=== PATIENT | female | born 1950 | race Caucasian/White ===

== ENCOUNTER 2018-05-25 13:21 | Inpatient (IN) ==
[~2018-05-25 13:21] MED LIST: DEXTROSE 50% 25 GM/50 ML VIAL IV PRN; GLUCAGON 1 MG VIAL IM PRN
[2018-05-25 14:43] LABS: Albumin 3.4 G/DL (3.4-5.0); Bilirubin,Total 0.5 MG/DL (0.2-1.0); Calcium 8.8 MG/DL (8.5-10.1); Osmolality,Calculated 273.7 MOS/KG (273-304); Potassium 4.1 MMOL/L (3.5-5.1); Total Protein 7.8 G/DL (6.4-8.3)
[2018-05-25 14:46] LABS: Basophils # 0.1 10*3/uL (0.0-0.2); Basophils % 0.9 % (0.0-0.8); Eosinophils # 0.4 10*3/uL (0.0-0.87); Eosinophils % 4.2 % (0.00-10.9); Hematocrit 37.8 VOL% (35.7-47.0); Immature Granulocytes % 0.4 %; Immature Granulocytes Absolute 0.04 #; Lymphocytes # 2.5 10*3/uL (1.4-4.0); Lymphocytes % 25.1 % (21.3-54.2); Mean Corpuscular HGB Conc 29.9 GM/DL (32-36); Mean Corpuscular Hemoglobin 26 PG (27-34); Mean Corpuscular Volume 87.5 FL (87-102); Mean Platelet Volume 11.5 FL (9.6-12.0); Monocytes # 0.7 10*3/uL (0.11-0.8); Monocytes % 7.1 % (1.7-12.7); Neutrophils # 6.1 10*3/uL (1.4-7.4); Neutrophils % 62.3 % (38.7-73.9); Platelet Count 369 T/CUMM (130-400); Red Blood Count 4.32 MC/CUMM (3.8-5.5); Red Cell Distribution Width 15.4 % (9.3-17.3); White Blood Count 9.8 T/CUMM (4-12)
[2018-05-25 14:47] LABS: Hemoglobin 11.3 GM/DL (12.0-16.0)
[2018-05-25] MEDS: CHLORHEXIDINE 4% SOLN 118 ML BOTTLE TOP SCH ×2 (15:41→20:30)
[2018-05-25] MEDS ORDERED: ZALEPLON 5 MG CAPSULE PO PRN (15:46)
[2018-05-25] MEDS ORDERED: traMADol 50 MG TABLET PO PRN (15:46)
[2018-05-26] MEDS: CHLORHEXIDINE 4% SOLN 118 ML BOTTLE TOP SCH ×2 (04:15→09:00)
[2018-05-26] MEDS ORDERED: VANCOMYCIN 1,000 MG VIAL ONE (05:22)
[2018-05-26] MEDS ORDERED: SUFentanil 250 MCG/5 ML AMP ONE (05:57)
[2018-05-26] MEDS ORDERED: MIDAZOLAM 10 MG/2 ML VIAL ONE ×2 (05:58)
[2018-05-26] MEDS ORDERED: SODIUM CHLORIDE 0.9% 1,000 ML IV SCH (06:30)
[2018-05-26] MEDS ORDERED: PANTOPRAZOLE 40 MG TABLET PO ONE (06:30)
[2018-05-26] MEDS ORDERED: DIAZEPAM 5 MG TABLET PO ONE (06:30)
[2018-05-26] MEDS ORDERED: CEFUROXIME INJ 1,500 MG in SYRINGE 1 EACH IV ONE (06:30)
[2018-05-26 07:59] LABS: ABG Base Excess 0.5 MMOL/L (-2.5-2.5); ABG HCO3 24.9 MMOL/L (20-26); ABG PCO2 37.9 MM HG (35-48); ABG PH 7.422 (7.35-7.45); ABG TCO2 22.5 MMOL/L (23-27); Glucose Heart Surgery 125 MG/DL (74-106); Hematocrit Heart Surgery 30.9 PERCENT (37-47); PCO2 Patient Temp Arterial 37.9 MMHG; PH Patient Temp Arterial 7.422; Patient Temperature 37 CELCIUS; Potassium Heart/CVR 3.9 MMOL/L (3.5-5.1); Sodium Heart/CVR 138 MMOL/L (135-145)
[2018-05-26] MEDS ORDERED: POTASSIUM CHLORIDE RIDER 100 ML IV ONE (08:06)
[2018-05-26] MEDS ORDERED: CALCIUM CHLORIDE 1,000 MG/10 ML SYRINGE IV ONE (08:06)
[2018-05-26] MEDS ORDERED: PHENYLEPHRINE DRIP 40 MG/250 ML PREMIX IV ONE (08:06)
[2018-05-26] MEDS ORDERED: NITROPRUSSIDE 50 MG/2 ML VIAL ONE (08:06)
[2018-05-26 08:56] LABS: Hematocrit Heart Surgery 20.4 PERCENT (37-47); Hemoglobin Heart Surgery 6.5 G/DL (12.0-16.0); PCO2 Patient Temp Venous 33.1 MM HG; PH Patient Temp Venous 7.481; PO2 Patient Temp Venous 41.8 MM HG; VBG Base Excess 1.5 MEQ/L (0-4); VBG HCO3 25.6 MEQ/L (24-28); VBG Oxygen Saturation 82.5 %; VBG PCO2 36.5 MMHG (41-51); VBG PH 7.451; VBG PO2 47.9 MMHG (17-40)
[2018-05-26] MEDS ORDERED: CHLORHEXIDINE 0.12% ORAL RINSE 60 ML BOTTLE SWISH/SPIT SCH (09:00)
[2018-05-26 09:23] LABS: Hematocrit Heart Surgery 21.6 PERCENT (37-47); Hemoglobin Heart Surgery 6.9 G/DL (12.0-16.0); PCO2 Patient Temp Venous 26.7 MM HG; PH Patient Temp Venous 7.564; PO2 Patient Temp Venous 33.1 MM HG; Potassium Heart/CVR 4.3 MMOL/L (3.5-5.1); VBG Base Excess 2.4 MEQ/L (0-4); VBG HCO3 26.3 MEQ/L (24-28); VBG Oxygen Saturation 77.2 %; VBG PCO2 30.9 MMHG (41-51); VBG PH 7.518; VBG PO2 40.8 MMHG (17-40)
[2018-05-26] MEDS ORDERED: methylPREDNISolone SOD SUC 1,000 MG/8 ML VIAL ONE (10:13)
[2018-05-26] MEDS ORDERED: MANNITOL 12.5 GM/50 ML VIAL IV ONE (10:13)
[2018-05-26] MEDS ORDERED: MAGNESIUM SULFATE 10 GM/20 ML VIAL IV ONE (10:13)
[2018-05-26] MEDS ORDERED: ALBUMIN 25% 25 GM/100 ML VIAL IV ONE (10:13)
[2018-05-26] MEDS ORDERED: SODIUM BICARBONATE 50 MEQ/50 ML SYRINGE IV ONE ×2 (10:13→10:31)
[2018-05-26] MEDS ORDERED: PROTAMINE SULFATE 250 MG/25 ML VIAL IV ONE (10:13)
[2018-05-26] MEDS ORDERED: HEPARIN 10,000 UNIT/10 ML VIAL ONE (10:13)
[2018-05-26] MEDS ORDERED: DEXTROSE 5% KCL 20 MEQ 20 MEQ/1,000 ML BAG IV ONE (10:13)
[2018-05-26] MEDS ORDERED: FUROSEMIDE 20 MG/2 ML VIAL ONE (10:14)
[2018-05-26] MEDS ORDERED: PHENYLEPHRINE 1 MG/10 ML SYRINGE IV ONE (10:14)
[2018-05-26 10:15] LABS: ABG Base Excess -0.8 MMOL/L (-2.5-2.5); ABG HCO3 23.8 MMOL/L (20-26); ABG Oxygen Saturation 99.9 % (95-100); ABG PCO2 34.4 MM HG (35-48); ABG PH 7.434 (7.35-7.45); ABG TCO2 21.1 MMOL/L (23-27); Glucose Heart Surgery 213 MG/DL (74-106); Hematocrit Heart Surgery 29.4 PERCENT (37-47); Hemoglobin Heart Surgery 9.5 G/DL (12.0-16.0); Ionized Calcium Arterial 1.19 MMOL/L (1.21-1.46); PCO2 Patient Temp Arterial 34.4 MMHG; PH Patient Temp Arterial 7.434; Patient Temperature 37 CELCIUS; Potassium Heart/CVR 3.7 MMOL/L (3.5-5.1); Sodium Heart/CVR 136 MMOL/L (135-145)
[2018-05-26] MEDS ORDERED: ALBUMIN 5% 12.5 GM/250 ML VIAL IV ONE (10:31)
[2018-05-26] MEDS ORDERED: SEVOFLURANE 1 UNIT/15 MINUTE INH ONE (10:53)
[2018-05-26] MEDS ORDERED: ePHEDrine 50 MG/ML AMP ONE (10:53)
[2018-05-26] MEDS ORDERED: CALCIUM CHLORIDE 1,000 MG/10 ML VIAL IV ONE (10:53)
[2018-05-26] MEDS ORDERED: MINERAL OIL/PETROLATUM OPH OINT 3.5 GM TUBE ONE (10:53)
[2018-05-26] MEDS ORDERED: HEPARIN/NACL 0.9% 2 UNITS/ML 500 ML IV ONE (10:53)
[2018-05-26] MEDS ORDERED: VECURONIUM 10 MG VIAL IV ONE (10:53)
[2018-05-26] MEDS ORDERED: SODIUM CHLORIDE 0.9% 1,000 ML IV ONE (10:54)
[2018-05-26] MEDS ORDERED: AMINOCAPROIC ACID 5,000 MG/20 ML VIAL IV ONE (10:54)
[2018-05-26] MEDS ORDERED: LACTATED RINGERS 1,000 ML IV ONE (10:54)
[2018-05-26] MEDS ORDERED: NITROGLYCERIN DRIP 50 MG/250 ML BOTTLE IV ONE (10:54)
[2018-05-26] MEDS ORDERED: ETOMIDATE 40 MG/20 ML VIAL IV ONE (10:54)
[2018-05-26] MEDS ORDERED: LACTATED RINGERS 250 ML IV PRN (11:02)
[2018-05-26] MEDS ORDERED: PHENYLEPHRINE DRIP 40 MG/250 ML PREMIX IV PRN (11:02)
[2018-05-26] MEDS ORDERED: MAGNESIUM SULF RIDER 2 GM in PREMIX 1 EACH IV PRN (11:02)
[2018-05-26] MEDS ORDERED: VECURONIUM 10 MG VIAL IV PRN ×2 (11:02)
[2018-05-26] MEDS ORDERED: ACETAMINOPHEN 650 MG SUPP RECTAL PRN (11:02)
[2018-05-26] MEDS ORDERED: MAGNESIUM SULF RIDER 4 GM in PREMIX 1 EACH IV PRN (11:02)
[2018-05-26] MEDS ORDERED: SODIUM CHLORIDE 0.45% 1,000 ML IV SCH ×2 (11:02)
[2018-05-26] MEDS ORDERED: CALCIUM CHLORIDE 1,000 MG/10 ML SYRINGE IV PRN (11:02)
[2018-05-26] MEDS ORDERED: NITROPRUSSIDE 100 MG in DEXTROSE 5% 250 ML IV PRN (11:02)
[2018-05-26] MEDS ORDERED: MIDAZOLAM 2 MG/2 ML VIAL IV PRN (11:02)
[2018-05-26] MEDS ORDERED: INSULIN REGULAR 100 UNIT/ML IV PRN (11:02)
[2018-05-26] MEDS ORDERED: MORPHINE 10 MG/1 ML VIAL IV PRN (11:02)
[2018-05-26] MEDS ORDERED: INSULIN REGULAR 100 UNIT/ML IV ONE (11:02)
[2018-05-26] MEDS ORDERED: MIDAZOLAM 10 MG/2 ML VIAL IV PRN (11:02)
[2018-05-26] MEDS ORDERED: ONDANSETRON 4 MG/2 ML VIAL IV PRN (11:02)
[2018-05-26] MEDS ORDERED: DEXTROSE 50% 25 GM/50 ML VIAL IV PRN ×2 (11:02)
[2018-05-26 11:25] LABS: ABG Base Excess -0.6 MMOL/L (-2.5-2.5); ABG HCO3 23.9 MMOL/L (20-26); ABG Oxygen Saturation 96.4 % (95-100); ABG PH 7.376 (7.35-7.45); ABG PO2 90.9 MM HG (80-95); ABG TCO2 22.8 MMOL/L (23-27); Glucose Heart Surgery 197 MG/DL (74-106); Hematocrit Heart Surgery 27.6 PERCENT (37-47); Hemoglobin Heart Surgery 8.9 G/DL (12.0-16.0); Potassium Heart/CVR 3.7 MMOL/L (3.5-5.1)
[2018-05-26 11:30] LABS: Basophils % 0.3 % (0.0-0.8); Eosinophils # 0.1 10*3/uL (0.0-0.87); Eosinophils % 0.8 % (0.00-10.9); Hematocrit 28.5 VOL% (35.7-47.0); Hemoglobin 8.7 GM/DL (12.0-16.0); Immature Granulocytes % 0.8 %; Immature Granulocytes Absolute 0.11 #; Lymphocytes # 0.9 10*3/uL (1.4-4.0); Mean Corpuscular HGB Conc 30.5 GM/DL (32-36); Mean Corpuscular Hemoglobin 27 PG (27-34); Mean Corpuscular Volume 87.4 FL (87-102); Mean Platelet Volume 10.9 FL (9.6-12.0); Monocytes # 0.6 10*3/uL (0.11-0.8); Monocytes % 4.2 % (1.7-12.7); Neutrophils # 11.4 10*3/uL (1.4-7.4); Neutrophils % 86.9 % (38.7-73.9); Platelet Count 252 T/CUMM (130-400); Red Blood Count 3.26 MC/CUMM (3.8-5.5); Red Cell Distribution Width 15.3 % (9.3-17.3); White Blood Count 13.1 T/CUMM (4-12)
[2018-05-26] MEDS: INSULIN REGULAR DRIP 100 ML IV SCH (11:38)
[2018-05-26 11:39] LABS: INR 1.1; PT Patient Result 11.1 SECS; Partial Thromboplastin Time 26.2 SECS (0-40)
[2018-05-26] MEDS ORDERED: PROTAMINE SULFATE 50 MG/5 ML VIAL IV ONE (11:47)
[2018-05-26] MEDS: POTASSIUM CHLORIDE RIDER 20 MEQ in PREMIX 1 EACH IV PRN ×2 (11:55→15:05)
[2018-05-26 11:57] LABS: Bilirubin,Total 0.8 MG/DL (0.2-1.0); Calcium 8.1 MG/DL (8.5-10.1); Osmolality,Calculated 285.3 MOS/KG (273-304); Potassium 3.9 MMOL/L (3.5-5.1); Total Protein 5.6 G/DL (6.4-8.3)
[2018-05-26] MEDS: KETOROLAC 30 MG/1 ML VIAL IV SCH ×3 (12:05→23:14)
[2018-05-26 12:10] LABS: Troponin I 0.716 NG/ML (0.00-0.045)
[2018-05-26] MEDS: POTASSIUM CHLORIDE RIDER 10 MEQ in PREMIX 1 EACH IV PRN (12:25)
[2018-05-26] MEDS: ALBUMIN 5% 12.5 GM in PREMIX 1 EACH IV PRN ×3 (12:28→18:05)
[2018-05-26 12:53] LABS: Amorphous Crystals,Urine Occasional /HPF (Few); Apearance,Urine CLOUDY (Clear); Bacteria,Urine Occasional /HPF (Few); Bilirubin,Urine Negative (Negative); Blood, Urine Negative (Negative); Glucose,Urine (UA) Negative (Negative); Ketones,Urine Negative (Negative); Mucus,Urine Occasional /LPF (Occasional); Nitrite,Urine Negative (Negative); Protein,Urine Negative; Squamous Epithelial Cell,Urine Occasional /HPF (0-10); Urine Color Yellow (Yellow); Urine Specific Gravity 1.008 (1.001-1.035); Urine Urobilinogen < 2.0 EU/DL (0.2-1.0); WBC,Urine 30 /HPF (0-6)
[2018-05-26 13:06] LABS: ABG Base Excess -0.5 MMOL/L (-2.5-2.5); ABG Oxygen Saturation 99.1 % (95-100); ABG PCO2 47.1 MM HG (35-48); ABG PH 7.342 (7.35-7.45); ABG TCO2 23.6 MMOL/L (23-27); Glucose Heart Surgery 167 MG/DL (74-106); Hematocrit Heart Surgery 28.1 PERCENT (37-47); Hemoglobin Heart Surgery 9.1 G/DL (12.0-16.0); Potassium Heart/CVR 4.2 MMOL/L (3.5-5.1)
[2018-05-26] MEDS: MORPHINE 4 MG/1 ML VIAL IV PRN ×2 (14:50→19:13)
[2018-05-26 15:04] LABS: ABG Base Excess -0.4 MMOL/L (-2.5-2.5); ABG HCO3 24.1 MMOL/L (20-26); ABG Oxygen Saturation 98.2 % (95-100); ABG PCO2 47.5 MM HG (35-48); ABG PH 7.341 (7.35-7.45); ABG TCO2 23.5 MMOL/L (23-27); Glucose Heart Surgery 126 MG/DL (74-106); Hematocrit Heart Surgery 30.9 PERCENT (37-47)
[2018-05-26 17:06] LABS: ABG Base Excess 0.4 MMOL/L (-2.5-2.5); ABG HCO3 24.8 MMOL/L (20-26); ABG PCO2 47.4 MM HG (35-48); ABG PH 7.353 (7.35-7.45); ABG TCO2 24.1 MMOL/L (23-27); Glucose Heart Surgery 113 MG/DL (74-106); Hematocrit Heart Surgery 31.3 PERCENT (37-47); Hemoglobin Heart Surgery 10.1 G/DL (12.0-16.0); Potassium Heart/CVR 4.6 MMOL/L (3.5-5.1)
[2018-05-26] MEDS ORDERED: CEFUROXIME INJ 1,500 MG in SYRINGE 1 EACH IV SCH (18:52)
[2018-05-26] MEDS: CHLORHEXIDINE 0.12% ORAL RINSE 60 ML BOTTLE SWISH/SPIT SCH (23:14)
[2018-05-26] MEDS ORDERED: FUROSEMIDE 40 MG/4 ML VIAL IV ONE (23:55)
[2018-05-26 23:59] LABS: ABG Base Excess 1.1 MMOL/L (-2.5-2.5); ABG HCO3 25.4 MMOL/L (20-26); ABG Oxygen Saturation 98.5 % (95-100); ABG PCO2 45.1 MM HG (35-48); ABG PH 7.377 (7.35-7.45); ABG TCO2 24.3 MMOL/L (23-27); Glucose Heart Surgery 148 MG/DL (74-106); Hematocrit Heart Surgery 29.7 PERCENT (37-47); Hemoglobin Heart Surgery 9.6 G/DL (12.0-16.0)
[2018-05-27 00:56] LABS: ABG Base Excess 1.7 MMOL/L (-2.5-2.5); ABG HCO3 25.9 MMOL/L (20-26); ABG PCO2 36.9 MM HG (35-48); ABG PH 7.449 (7.35-7.45); ABG TCO2 23.3 MMOL/L (23-27); Glucose Heart Surgery 139 MG/DL (74-106); Hematocrit Heart Surgery 29.6 PERCENT (37-47); Hemoglobin Heart Surgery 9.5 G/DL (12.0-16.0)
[2018-05-27 01:41] LABS: ABG HCO3 26.2 MMOL/L (20-26); ABG Oxygen Saturation 98.3 % (95-100); ABG PCO2 48.6 MM HG (35-48); ABG PH 7.366 (7.35-7.45); ABG TCO2 25.5 MMOL/L (23-27); Glucose Heart Surgery 130 MG/DL (74-106); Hematocrit Heart Surgery 29.8 PERCENT (37-47); Hemoglobin Heart Surgery 9.6 G/DL (12.0-16.0); Potassium Heart/CVR 3.8 MMOL/L (3.5-5.1)
[2018-05-27 03:15] LABS: Basophils % 0.1 % (0.0-0.8); Hematocrit 29.4 VOL% (35.7-47.0); Immature Granulocytes % 0.8 %; Immature Granulocytes Absolute 0.15 #; Lymphocytes # 1.1 10*3/uL (1.4-4.0); Lymphocytes % 6.1 % (21.3-54.2); Mean Corpuscular HGB Conc 30.6 GM/DL (32-36); Mean Corpuscular Hemoglobin 27 PG (27-34); Mean Corpuscular Volume 87.5 FL (87-102); Mean Platelet Volume 10.8 FL (9.6-12.0); Monocytes # 0.6 10*3/uL (0.11-0.8); Monocytes % 3.4 % (1.7-12.7); Neutrophils # 15.9 10*3/uL (1.4-7.4); Neutrophils % 89.6 % (38.7-73.9); Platelet Count 264 T/CUMM (130-400); Red Blood Count 3.36 MC/CUMM (3.8-5.5); Red Cell Distribution Width 15.4 % (9.3-17.3); White Blood Count 17.8 T/CUMM (4-12)
[2018-05-27 03:15] LABS: ABG Base Excess 2.6 MMOL/L (-2.5-2.5); ABG HCO3 26.7 MMOL/L (20-26); ABG Oxygen Saturation 94.4 % (95-100); ABG PCO2 50.7 MM HG (35-48); ABG PH 7.361 (7.35-7.45); ABG PO2 77.7 MM HG (80-95); ABG TCO2 26.5 MMOL/L (23-27); Glucose Heart Surgery 119 MG/DL (74-106); Hematocrit Heart Surgery 28.8 PERCENT (37-47); Hemoglobin Heart Surgery 9.3 G/DL (12.0-16.0); Potassium Heart/CVR 3.8 MMOL/L (3.5-5.1)
[2018-05-27] MEDS ORDERED: SODIUM CHLORIDE 0.9% 1,000 ML IV PRN (03:19)
[2018-05-27 03:37] LABS: Troponin I 0.787 NG/ML (0.00-0.045)
[2018-05-27] MEDS: POTASSIUM CHLORIDE RIDER 20 MEQ in PREMIX 1 EACH IV PRN (04:14)
[2018-05-27] MEDS: INSULIN REGULAR DRIP 100 ML IV SCH (05:10)
[2018-05-27 05:40] LABS: Albumin 3.6 G/DL (3.4-5.0); Bilirubin,Direct 0.26 MG/DL (0.0-0.20); Bilirubin,Total 0.7 MG/DL (0.2-1.0); Calcium 8.5 MG/DL (8.5-10.1); Osmolality,Calculated 284.1 MOS/KG (273-304); Potassium 3.8 MMOL/L (3.5-5.1); Total Protein 6.6 G/DL (6.4-8.3)
[2018-05-27] MEDS: KETOROLAC 30 MG/1 ML VIAL IV SCH ×4 (06:29→21:12)
[2018-05-27] MEDS: POTASSIUM CHLORIDE RIDER 10 MEQ in PREMIX 1 EACH IV PRN (06:31)
[2018-05-27] MEDS: MORPHINE 4 MG/1 ML VIAL IV PRN (06:56)
[2018-05-27] MEDS ORDERED: VANCOMYCIN INJ 1,000 MG in SODIUM CHLORIDE 0.9% 250 ML IV ONE ×2 (07:00→19:00)
[2018-05-27] MEDS: CHLORHEXIDINE 0.12% ORAL RINSE 60 ML BOTTLE SWISH/SPIT SCH ×3 (09:00→20:01)
[2018-05-27] MEDS ORDERED: ALUMINUM/MAGNES/SIMETH MAX STR 30 ML UDCUP PO PRN (09:48)
[2018-05-27] MEDS ORDERED: ACETAMINOPHEN 325 MG TABLET PO PRN (09:48)
[2018-05-27] MEDS ORDERED: MAGNESIUM HYDROXIDE SUSP 30 ML UDCUP PO PRN (09:48)
[2018-05-27] MEDS ORDERED: GLUCAGON 1 MG VIAL IM PRN ×2 (09:48)
[2018-05-27] MEDS ORDERED: ASPIRIN EC 325 MG TABLET PO SCH (09:48)
[2018-05-27] MEDS ORDERED: PANTOPRAZOLE 40 MG TABLET PO SCH (09:48)
[2018-05-27] MEDS ORDERED: POLYETHYLENE GLYCOL POWDER 255 GM BOTTLE PO PRN (09:48)
[2018-05-27] MEDS ORDERED: ZALEPLON 5 MG CAPSULE PO PRN (09:48)
[2018-05-27] MEDS ORDERED: DEXTROSE 50% 25 GM/50 ML VIAL IV PRN ×2 (09:48)
[2018-05-27] MEDS ORDERED: ONDANSETRON 4 MG/2 ML VIAL IV PRN (09:48)
[2018-05-27] MEDS ORDERED: ACETAMINOPHEN 500 MG TABLET PO PRN (09:48)
[2018-05-27] MEDS ORDERED: BENZONATATE 100 MG CAPSULE PO PRN (09:48)
[2018-05-27] MEDS ORDERED: MAGNESIUM SULF RIDER 4 GM in PREMIX 1 EACH IV PRN (09:48)
[2018-05-27] MEDS ORDERED: LACTULOSE 160 GM/240 ML BOTTLE PO PRN (09:48)
[2018-05-27] MEDS ORDERED: SODIUM CHLOR 0.45% KCL 20 MEQ 20 MEQ/1,000 ML BAG IV SCH (09:48)
[2018-05-27] MEDS ORDERED: ALBUTEROL 2.5 MG/3 ML NEB RESP TX PRN (09:48)
[2018-05-27] MEDS ORDERED: FLUTICASONE 50 MCG NASAL SPRAY 16 GM BOTTLE BOTH NARES PRN (09:48)
[2018-05-27] MEDS ORDERED: LACTULOSE 20 GM/30 ML UDCUP PO PRN (10:00)
[2018-05-27] MEDS ORDERED: POLYETHYLENE GLYCOL POWDER 17 GM PACK PO PRN (10:30)
[2018-05-27 10:44] LABS: ABG Base Excess 0.6 MMOL/L (-2.5-2.5); ABG HCO3 25.6 MMOL/L (20-26); ABG Oxygen Saturation 97.9 % (95-100); ABG PCO2 42.4 MM HG (35-48); ABG PH 7.398 (7.35-7.45); ABG PO2 119.1 MM HG (80-95); ABG TCO2 26.9 MMOL/L (23-27); Glucose Heart Surgery 119 MG/DL (74-106); Hemoglobin Heart Surgery 10.8 G/DL (12.0-16.0); Potassium Heart/CVR 4.3 MMOL/L (3.5-5.1)
[2018-05-27] MEDS: DOCUSATE SODIUM 100 MG CAPSULE PO SCH (10:48)
[2018-05-27] MEDS: PANTOPRAZOLE 40 MG TABLET PO SCH (10:49)
[2018-05-27] MEDS: GABAPENTIN 300 MG CAPSULE PO SCH ×2 (10:49→20:00)
[2018-05-27] MEDS: FEXOFENADINE 180 MG TABLET PO SCH (10:49)
[2018-05-27] MEDS: metFORMIN 500 MG TABLET PO SCH ×2 (10:49→20:00)
[2018-05-27] MEDS: ASCORBIC ACID 500 MG TABLET PO SCH (10:50)
[2018-05-27] MEDS: ASPIRIN 325 MG TABLET PO SCH (10:50)
[2018-05-27] MEDS: LEVOFLOXACIN 500 MG TABLET PO SCH (10:51)
[2018-05-27] MEDS: FERROUS SULFATE 325 MG TABLET PO SCH (10:53)
[2018-05-27] MEDS: PARoxetine 20 MG TABLET PO SCH (10:53)
[2018-05-27] MEDS: busPIRone 5 MG TABLET PO SCH ×3 (10:53→21:08)
[2018-05-27] MEDS: LISINOPRIL 20 MG TABLET PO SCH (11:00)
[2018-05-27] MEDS: FLUTICASONE/SALMETEROL 250-50 DISKUS 14 DOSE INH SCH ×2 (11:01→20:01)
[2018-05-27] MEDS: DICLOFENAC 1% GEL 100 GM TUBE TOP PRN (11:08)
[2018-05-27] MEDS ORDERED: INSULIN REGULAR 100 UNIT/ML SUBCUT SCH (12:00)
[2018-05-27] MEDS ORDERED: FUROSEMIDE 40 MG/4 ML VIAL IV ONE (13:07)
[2018-05-27] MEDS: POTASSIUM CHLORIDE 20 MEQ TABLET PO PRN (13:23)
[2018-05-27] MEDS: oxyCODONE/ACETAMINOPHEN 5-325 MG TABLET PO PRN (19:59)
[2018-05-28] MEDS: GABAPENTIN 400 MG CAPSULE PO SCH ×2 (01:58→21:20)
[2018-05-28] MEDS: KETOROLAC 30 MG/1 ML VIAL IV SCH ×4 (03:55→21:30)
[2018-05-28 04:11] LABS: Basophils # 0.1 10*3/uL (0.0-0.2); Basophils % 0.4 % (0.0-0.8); Eosinophils # 0.1 10*3/uL (0.0-0.87); Eosinophils % 0.9 % (0.00-10.9); Hematocrit 32.1 VOL% (35.7-47.0); Hemoglobin 9.6 GM/DL (12.0-16.0); Immature Granulocytes % 0.7 %; Lymphocytes # 2.3 10*3/uL (1.4-4.0); Lymphocytes % 15.3 % (21.3-54.2); Mean Corpuscular HGB Conc 29.9 GM/DL (32-36); Mean Corpuscular Hemoglobin 27 PG (27-34); Mean Corpuscular Volume 89.7 FL (87-102); Mean Platelet Volume 11.3 FL (9.6-12.0); Monocytes # 1.3 10*3/uL (0.11-0.8); Monocytes % 8.3 % (1.7-12.7); Neutrophils # 11.3 10*3/uL (1.4-7.4); Neutrophils % 74.4 % (38.7-73.9); Platelet Count 229 T/CUMM (130-400); Red Blood Count 3.58 MC/CUMM (3.8-5.5); Red Cell Distribution Width 15.9 % (9.3-17.3); White Blood Count 15.1 T/CUMM (4-12)
[2018-05-28 04:35] LABS: Alanine Aminotransferase 21 U/L (13-56); Albumin 3.2 G/DL (3.4-5.0); Alkaline Phosphatase 96 U/L (45-117); Aspartate Amino Transferase 23 U/L (0-37); Bilirubin,Indirect 0.5 MG/DL (0.0-1.0); Blood Urea Nitrogen 23 MG/DL (7-18); Calcium 8.2 MG/DL (8.5-10.1); Glucose 109 MG/DL (74-106); Osmolality,Calculated 283.4 MOS/KG (273-304); Potassium 4.4 MMOL/L (3.5-5.1); Sodium 140 MMOL/L (136-145); Total Protein 6.5 G/DL (6.4-8.3)
[2018-05-28 04:48] LABS: Troponin I 0.384 NG/ML (0.00-0.045)
[2018-05-28] MEDS ORDERED: FUROSEMIDE 40 MG/4 ML VIAL IV ONE (06:00)
[2018-05-28] MEDS: ASCORBIC ACID 500 MG TABLET PO SCH (09:05)
[2018-05-28] MEDS: busPIRone 5 MG TABLET PO SCH ×3 (09:06→21:20)
[2018-05-28] MEDS: metFORMIN 500 MG TABLET PO SCH ×2 (09:07→21:22)
[2018-05-28] MEDS: FERROUS SULFATE 325 MG TABLET PO SCH (09:09)
[2018-05-28] MEDS: PANTOPRAZOLE 40 MG TABLET PO SCH (09:09)
[2018-05-28] MEDS: FEXOFENADINE 180 MG TABLET PO SCH (09:09)
[2018-05-28] MEDS: PARoxetine 20 MG TABLET PO SCH (09:10)
[2018-05-28] MEDS: LISINOPRIL 20 MG TABLET PO SCH (09:11)
[2018-05-28] MEDS: LEVOFLOXACIN 500 MG TABLET PO SCH (09:12)
[2018-05-28] MEDS: GABAPENTIN 300 MG CAPSULE PO SCH ×2 (09:12→21:20)
[2018-05-28] MEDS: ASPIRIN 325 MG TABLET PO SCH (09:13)
[2018-05-28] MEDS: DOCUSATE SODIUM 100 MG CAPSULE PO SCH (09:13)
[2018-05-28] MEDS: FLUTICASONE/SALMETEROL 250-50 DISKUS 14 DOSE INH SCH ×2 (09:15→21:21)
[2018-05-28] MEDS: CHLORHEXIDINE 0.12% ORAL RINSE 60 ML BOTTLE SWISH/SPIT SCH ×2 (09:17→21:22)
[2018-05-28] MEDS: oxyCODONE/ACETAMINOPHEN 5-325 MG TABLET PO PRN ×2 (14:01→19:45)
[2018-05-28] MEDS: GENTAMICIN INJ 80 MG in PREMIX 1 EACH IV SCH (18:30)
[2018-05-29] MEDS: KETOROLAC 30 MG/1 ML VIAL IV SCH ×4 (03:52→21:01)
[2018-05-29] MEDS ORDERED: DILTIAZEM 50 MG/10 ML VIAL IV ONE (04:11)
[2018-05-29] MEDS ORDERED: AMIODARONE INJ 150 MG in DEXTROSE 5% 100 ML IV ONE (04:11)
[2018-05-29] MEDS ORDERED: AMIODARONE INJ 450 MG in DEXTROSE 5% 241 ML IV SCH ×2 (04:30→13:30)
[2018-05-29] MEDS ORDERED: DILTIAZEM INJ 100 MG in SODIUM CHLORIDE 0.9% 100 ML IV SCH (04:30)
[2018-05-29 04:40] LABS: Basophils # 0.1 10*3/uL (0.0-0.2); Basophils % 0.6 % (0.0-0.8); Eosinophils # 0.6 10*3/uL (0.0-0.87); Eosinophils % 3.9 % (0.00-10.9); Hematocrit 31.9 VOL% (35.7-47.0); Hemoglobin 9.7 GM/DL (12.0-16.0); Immature Granulocytes % 0.7 %; Lymphocytes # 2.5 10*3/uL (1.4-4.0); Lymphocytes % 17.2 % (21.3-54.2); Mean Corpuscular HGB Conc 30.4 GM/DL (32-36); Mean Corpuscular Hemoglobin 27 PG (27-34); Mean Corpuscular Volume 89.1 FL (87-102); Mean Platelet Volume 11.7 FL (9.6-12.0); Monocytes # 1.1 10*3/uL (0.11-0.8); Monocytes % 7.3 % (1.7-12.7); Neutrophils # 10.3 10*3/uL (1.4-7.4); Neutrophils % 70.3 % (38.7-73.9); Platelet Count 256 T/CUMM (130-400); Red Blood Count 3.58 MC/CUMM (3.8-5.5); Red Cell Distribution Width 15.6 % (9.3-17.3); White Blood Count 14.7 T/CUMM (4-12)
[2018-05-29 05:12] LABS: Alanine Aminotransferase 21 U/L (13-56); Alkaline Phosphatase 95 U/L (45-117); Aspartate Amino Transferase 20 U/L (0-37); Bilirubin,Indirect 0.5 MG/DL (0.0-1.0); Blood Urea Nitrogen 21 MG/DL (7-18); Calcium 8.2 MG/DL (8.5-10.1); Glucose 103 MG/DL (74-106); Osmolality,Calculated 275.8 MOS/KG (273-304); Potassium 3.9 MMOL/L (3.5-5.1); Sodium 137 MMOL/L (136-145); Total Protein 6.6 G/DL (6.4-8.3)
[2018-05-29 05:13] LABS: Troponin I 0.186 NG/ML (0.00-0.045)
[2018-05-29] MEDS: GENTAMICIN INJ 80 MG in PREMIX 1 EACH IV SCH ×2 (05:50→18:00)
[2018-05-29] MEDS: GABAPENTIN 300 MG CAPSULE PO SCH ×2 (08:21→21:00)
[2018-05-29] MEDS: metFORMIN 500 MG TABLET PO SCH ×2 (08:21→20:59)
[2018-05-29] MEDS: PANTOPRAZOLE 40 MG TABLET PO SCH (08:21)
[2018-05-29] MEDS: DOCUSATE SODIUM 100 MG CAPSULE PO SCH (08:22)
[2018-05-29] MEDS: ASCORBIC ACID 500 MG TABLET PO SCH (08:22)
[2018-05-29] MEDS: ASPIRIN 325 MG TABLET PO SCH (08:22)
[2018-05-29] MEDS: POTASSIUM CHLORIDE 20 MEQ TABLET PO PRN (08:22)
[2018-05-29] MEDS: FERROUS SULFATE 325 MG TABLET PO SCH (08:22)
[2018-05-29] MEDS: busPIRone 5 MG TABLET PO SCH ×3 (08:22→20:58)
[2018-05-29] MEDS: PARoxetine 20 MG TABLET PO SCH (08:22)
[2018-05-29] MEDS: LISINOPRIL 20 MG TABLET PO SCH ×2 (08:23→08:25)
[2018-05-29] MEDS: FEXOFENADINE 180 MG TABLET PO SCH (08:23)
[2018-05-29] MEDS: MAGNESIUM SULF RIDER 2 GM in PREMIX 1 EACH IV PRN (08:29)
[2018-05-29] MEDS: FLUTICASONE/SALMETEROL 250-50 DISKUS 14 DOSE INH SCH ×2 (08:29→21:00)
[2018-05-29] MEDS: CHLORHEXIDINE 0.12% ORAL RINSE 60 ML BOTTLE SWISH/SPIT SCH ×2 (08:32→21:00)
[2018-05-29] MEDS ORDERED: AMIODARONE 450 MG/9 ML VIAL IV ONE (13:23)
[2018-05-29] MEDS: oxyCODONE/ACETAMINOPHEN 5-325 MG TABLET PO PRN (15:02)
[2018-05-29] MEDS ORDERED: AMIODARONE 200 MG TABLET PO ONE (16:08)
[2018-05-29] MEDS: AMIODARONE 200 MG TABLET PO SCH (20:59)
[2018-05-29] MEDS: GABAPENTIN 400 MG CAPSULE PO SCH (20:59)
[2018-05-29] MEDS: DICLOFENAC 1% GEL 100 GM TUBE TOP PRN (21:01)
[2018-05-30] MEDS: KETOROLAC 30 MG/1 ML VIAL IV SCH (04:02)
[2018-05-30] MEDS: GENTAMICIN INJ 80 MG in PREMIX 1 EACH IV SCH ×2 (05:40→16:17)
[2018-05-30] MEDS: FEXOFENADINE 180 MG TABLET PO SCH (08:38)
[2018-05-30] MEDS: metFORMIN 500 MG TABLET PO SCH ×2 (08:38→20:18)
[2018-05-30] MEDS: busPIRone 5 MG TABLET PO SCH ×3 (08:38→20:18)
[2018-05-30] MEDS: DOCUSATE SODIUM 100 MG CAPSULE PO SCH (08:38)
[2018-05-30] MEDS: PARoxetine 20 MG TABLET PO SCH (08:38)
[2018-05-30] MEDS: ASPIRIN 325 MG TABLET PO SCH (08:38)
[2018-05-30] MEDS: FERROUS SULFATE 325 MG TABLET PO SCH (08:38)
[2018-05-30] MEDS: GABAPENTIN 300 MG CAPSULE PO SCH ×2 (08:38→20:19)
[2018-05-30] MEDS: AMIODARONE 200 MG TABLET PO SCH ×2 (08:39→20:18)
[2018-05-30] MEDS: ASCORBIC ACID 500 MG TABLET PO SCH (08:39)
[2018-05-30] MEDS: LISINOPRIL 20 MG TABLET PO SCH (08:39)
[2018-05-30] MEDS: PANTOPRAZOLE 40 MG TABLET PO SCH (08:47)
[2018-05-30] MEDS: NITROFURANTOIN MACRO/MONO 100 MG CAPSULE PO SCH ×2 (08:47→20:22)
[2018-05-30] MEDS: CHLORHEXIDINE 0.12% ORAL RINSE 60 ML BOTTLE SWISH/SPIT SCH ×2 (08:49→20:19)
[2018-05-30] MEDS: FLUTICASONE/SALMETEROL 250-50 DISKUS 14 DOSE INH SCH ×2 (08:49→20:19)
[2018-05-30] MEDS: oxyCODONE/ACETAMINOPHEN 5-325 MG TABLET PO PRN ×2 (10:03→17:41)
[2018-05-30] MEDS ORDERED: TUBERCULIN SKIN TEST 0.1 ML SYRINGE INTRADERM ONE (12:33)
[2018-05-30] MEDS ORDERED: LACTULOSE 20 GM/30 ML UDCUP PO PRN (18:13)
[2018-05-30] MEDS: GABAPENTIN 400 MG CAPSULE PO SCH (20:18)
[2018-05-31 03:19] LABS: Basophils # 0.1 10*3/uL (0.0-0.2); Basophils % 0.7 % (0.0-0.8); Eosinophils # 0.8 10*3/uL (0.0-0.87); Eosinophils % 6.4 % (0.00-10.9); Hematocrit 32.9 VOL% (35.7-47.0); Hemoglobin 9.8 GM/DL (12.0-16.0); Immature Granulocytes % 1.2 %; Immature Granulocytes Absolute 0.14 #; Lymphocytes # 2.1 10*3/uL (1.4-4.0); Lymphocytes % 17.6 % (21.3-54.2); Mean Corpuscular HGB Conc 29.8 GM/DL (32-36); Mean Corpuscular Hemoglobin 26 PG (27-34); Mean Corpuscular Volume 88.7 FL (87-102); Mean Platelet Volume 12.2 FL (9.6-12.0); Monocytes # 0.9 10*3/uL (0.11-0.8); Monocytes % 7.4 % (1.7-12.7); Neutrophils # 7.9 10*3/uL (1.4-7.4); Neutrophils % 66.7 % (38.7-73.9); Platelet Count 340 T/CUMM (130-400); Red Blood Count 3.71 MC/CUMM (3.8-5.5); Red Cell Distribution Width 15.4 % (9.3-17.3); White Blood Count 11.9 T/CUMM (4-12)
[2018-05-31 03:44] LABS: Alanine Aminotransferase 24 U/L (13-56); Albumin 3.3 G/DL (3.4-5.0); Alkaline Phosphatase 154 U/L (45-117); Aspartate Amino Transferase 18 U/L (0-37); Bilirubin,Indirect 0.9 MG/DL (0.0-1.0); Blood Urea Nitrogen 10 MG/DL (7-18); Calcium 8.8 MG/DL (8.5-10.1); Glucose 102 MG/DL (74-106); Osmolality,Calculated 275.5 MOS/KG (273-304); Potassium 4.1 MMOL/L (3.5-5.1); Sodium 139 MMOL/L (136-145)
[2018-05-31 03:45] LABS: Troponin I 0.094 NG/ML (0.00-0.045)
[2018-05-31] MEDS: GENTAMICIN INJ 80 MG in PREMIX 1 EACH IV SCH (04:54)
[2018-05-31] MEDS: oxyCODONE/ACETAMINOPHEN 5-325 MG TABLET PO PRN ×2 (07:55→14:36)
[2018-05-31] MEDS: NITROFURANTOIN MACRO/MONO 100 MG CAPSULE PO SCH (09:34)
[2018-05-31] MEDS: metFORMIN 500 MG TABLET PO SCH (09:36)
[2018-05-31] MEDS: PARoxetine 20 MG TABLET PO SCH (09:37)
[2018-05-31] MEDS: AMIODARONE 200 MG TABLET PO SCH (09:37)
[2018-05-31] MEDS: busPIRone 5 MG TABLET PO SCH ×2 (09:38→15:14)
[2018-05-31] MEDS: ASCORBIC ACID 500 MG TABLET PO SCH (09:38)
[2018-05-31] MEDS: FEXOFENADINE 180 MG TABLET PO SCH (09:39)
[2018-05-31] MEDS: PANTOPRAZOLE 40 MG TABLET PO SCH (09:39)
[2018-05-31] MEDS: DOCUSATE SODIUM 100 MG CAPSULE PO SCH (09:39)
[2018-05-31] MEDS: FERROUS SULFATE 325 MG TABLET PO SCH (09:39)
[2018-05-31] MEDS: ASPIRIN 325 MG TABLET PO SCH (09:40)
[2018-05-31] MEDS: LISINOPRIL 20 MG TABLET PO SCH (09:40)
[2018-05-31] MEDS: CHLORHEXIDINE 0.12% ORAL RINSE 60 ML BOTTLE SWISH/SPIT SCH (09:41)
[2018-05-31] MEDS: MAGNESIUM SULF RIDER 2 GM in PREMIX 1 EACH IV PRN (09:44)
[2018-05-31] MEDS: FLUTICASONE/SALMETEROL 250-50 DISKUS 14 DOSE INH SCH (09:49)
[2018-05-31] MEDS: GABAPENTIN 300 MG CAPSULE PO SCH (09:49)
[2018-05-31 12:03] VITALS: BP 156/67
== END 2018-05-31 15:10 | disposition home or self-care (01) | DRG 220 ==
LOC: N.TELEN 13:21 → N.CVR 05-26 08:02 → N.TELES 05-27 14:19

== ENCOUNTER 2018-09-05 15:39 | Observation (INO) ==
[2018-09-05 16:02] LABS: Basophils # 0.1 10*3/uL (0.0-0.2); Basophils % 0.9 % (0.0-0.8); Eosinophils # 0.2 10*3/uL (0.0-0.87); Eosinophils % 2.2 % (0.00-10.9); Hematocrit 34.6 VOL% (35.7-47.0); Hemoglobin 10.9 GM/DL (12.0-16.0); Immature Granulocytes % 0.3 %; Immature Granulocytes Absolute 0.03 #; Lymphocytes # 2.9 10*3/uL (1.4-4.0); Lymphocytes % 34.3 % (21.3-54.2); Mean Corpuscular HGB Conc 31.5 GM/DL (32-36); Mean Corpuscular Hemoglobin 28 PG (27-34); Mean Corpuscular Volume 88.9 FL (87-102); Mean Platelet Volume 10.4 FL (9.6-12.0); Monocytes # 0.5 10*3/uL (0.11-0.8); Monocytes % 5.6 % (1.7-12.7); Neutrophils # 4.9 10*3/uL (1.4-7.4); Neutrophils % 56.7 % (38.7-73.9); Platelet Count 318 T/CUMM (130-400); Red Blood Count 3.89 MC/CUMM (3.8-5.5); White Blood Count 8.6 T/CUMM (4-12)
[2018-09-05 16:18] LABS: Albumin 3.4 G/DL (3.4-5.0); Bilirubin,Total 0.4 MG/DL (0.2-1.0); Calcium 8.7 MG/DL (8.5-10.1); Osmolality,Calculated 276.8 MOS/KG (273-304); Potassium 4.3 MMOL/L (3.5-5.1); Total Protein 6.9 G/DL (6.4-8.3)
[2018-09-05] MEDS ORDERED: ONDANSETRON 4 MG/2 ML VIAL IV STA (16:45)
[2018-09-05] MEDS ORDERED: MORPHINE 4 MG/1 ML VIAL IV STA (16:45)
[2018-09-05] MEDS ORDERED: ONDANSETRON 4 MG/2 ML VIAL IV PRN (17:51)
[2018-09-05] MEDS ORDERED: CALCIUM CARBONATE CHEW 500 MG TABLET PO PRN (17:55)
[2018-09-05] MEDS ORDERED: ACETAMINOPHEN 325 MG TABLET PO PRN (17:55)
[2018-09-05] MEDS ORDERED: GLUCAGON 1 MG VIAL IM PRN ×2 (17:55→17:56)
[2018-09-05] MEDS ORDERED: GLUCOSE GEL 15 GM TUBE PO PRN (17:55)
[2018-09-05] MEDS ORDERED: BENZOCAINE/MENTHOL LOZENGE 18/BOX PO PRN (17:55)
[2018-09-05] MEDS ORDERED: FLUTICASONE 50 MCG NASAL SPRAY 16 GM BOTTLE BOTH NARES PRN (17:55)
[2018-09-05] MEDS ORDERED: ALBUTEROL 2.5 MG/3 ML NEB RESP TX PRN (17:55)
[2018-09-05] MEDS ORDERED: BENZONATATE 100 MG CAPSULE PO PRN (17:55)
[2018-09-05] MEDS ORDERED: POLYETHYLENE GLYCOL POWDER 17 GM PACK PO PRN (17:55)
[2018-09-05] MEDS ORDERED: DEXTROSE 50% 25 GM/50 ML SYRINGE IV PRN (17:56)
[2018-09-05 18:18] LABS: Risk Ratio 3.22; VLDL CHOLESTEROL 25.8 MG/DL
[2018-09-05] MEDS: PANTOPRAZOLE 40 MG TABLET PO SCH (20:48)
[2018-09-05] MEDS: GABAPENTIN 400 MG CAPSULE PO SCH (20:49)
[2018-09-05] MEDS: FAMOTIDINE 20 MG TABLET PO SCH (20:49)
[2018-09-05] MEDS: busPIRone 15 MG TABLET PO SCH (20:49)
[2018-09-05] MEDS: INSULIN REGULAR 100 UNIT/ML SUBCUT SCH (20:49)
[2018-09-05] MEDS: FLUTICASONE/SALMETEROL 250-50 DISKUS 14 DOSE INH SCH (20:49)
[2018-09-05] MEDS: MORPHINE 4 MG/1 ML VIAL IV PRN (20:53)
[2018-09-05] MEDS ORDERED: PAROXETINE MESYLATE 7.5 MG PO SCH (21:00)
[2018-09-06] MEDS: MORPHINE 4 MG/1 ML VIAL IV PRN ×2 (04:10→13:06)
[2018-09-06] MEDS: LEVOTHYROXINE 25 MCG TABLET PO SCH (06:20)
[2018-09-06] MEDS: INSULIN REGULAR 100 UNIT/ML SUBCUT SCH ×4 (07:46→21:37)
[2018-09-06 08:25] LABS: Basophils # 0.1 10*3/uL (0.0-0.2); Basophils % 0.6 % (0.0-0.8); Eosinophils # 0.3 10*3/uL (0.0-0.87); Eosinophils % 3.3 % (0.00-10.9); Hematocrit 36.2 VOL% (35.7-47.0); Hemoglobin 11.4 GM/DL (12.0-16.0); Immature Granulocytes % 0.4 %; Immature Granulocytes Absolute 0.03 #; Lymphocytes % 25.2 % (21.3-54.2); Mean Corpuscular HGB Conc 31.5 GM/DL (32-36); Mean Corpuscular Hemoglobin 28 PG (27-34); Mean Corpuscular Volume 90.3 FL (87-102); Mean Platelet Volume 10.1 FL (9.6-12.0); Monocytes # 0.6 10*3/uL (0.11-0.8); Monocytes % 7.2 % (1.7-12.7); Neutrophils % 63.3 % (38.7-73.9); Platelet Count 274 T/CUMM (130-400); Red Blood Count 4.01 MC/CUMM (3.8-5.5); Red Cell Distribution Width 16.4 % (9.3-17.3); White Blood Count 7.8 T/CUMM (4-12)
[2018-09-06 08:41] LABS: Osmolality,Calculated 275.7 MOS/KG (273-304); Potassium 4.9 MMOL/L (3.5-5.1)
[2018-09-06] MEDS: FAMOTIDINE 20 MG TABLET PO SCH ×2 (08:52→21:35)
[2018-09-06] MEDS: PANTOPRAZOLE 40 MG TABLET PO SCH ×2 (08:52→21:35)
[2018-09-06] MEDS: FEXOFENADINE 180 MG TABLET PO SCH (08:52)
[2018-09-06] MEDS: AMIODARONE 200 MG TABLET PO SCH (08:53)
[2018-09-06] MEDS: ASCORBIC ACID 500 MG TABLET PO SCH (08:53)
[2018-09-06] MEDS: FLUTICASONE/SALMETEROL 250-50 DISKUS 14 DOSE INH SCH ×2 (08:53→21:35)
[2018-09-06] MEDS: ASPIRIN EC 81 MG TABLET PO SCH (08:53)
[2018-09-06] MEDS: LISINOPRIL 20 MG TABLET PO SCH (08:53)
[2018-09-06] MEDS: busPIRone 15 MG TABLET PO SCH ×3 (08:53→21:34)
[2018-09-06] MEDS: GABAPENTIN 400 MG CAPSULE PO SCH ×3 (08:53→21:35)
[2018-09-06] MEDS: amLODIPine 5 MG TABLET PO SCH (08:56)
[2018-09-06] MEDS ORDERED: NITROGLYCERIN 2% OINT 1 INCH/GM PACK TOP SCH (09:00)
[2018-09-06] MEDS ORDERED: ALUM/MAG/SIMETH/LIDO VISC 1:1 30 ML BOTTLE PO ONE (09:00)
[2018-09-06] MEDS ORDERED: NITROGLYCERIN SL 0.4 MG TABLET SL PRN (09:49)
[2018-09-06] MEDS ORDERED: ASPIRIN CHEW 81 MG TABLET PO ONE ×2 (09:49)
[2018-09-06] MEDS ORDERED: MORPHINE 4 MG/1 ML VIAL IV ONE (10:00)
[2018-09-06 10:05] LABS: Basophils # 0.1 10*3/uL (0.0-0.2); Basophils % 0.6 % (0.0-0.8); Eosinophils # 0.2 10*3/uL (0.0-0.87); Eosinophils % 1.8 % (0.00-10.9); Hematocrit 37.5 VOL% (35.7-47.0); Hemoglobin 11.8 GM/DL (12.0-16.0); Immature Granulocytes % 0.5 %; Immature Granulocytes Absolute 0.04 #; Lymphocytes # 2.3 10*3/uL (1.4-4.0); Lymphocytes % 26.9 % (21.3-54.2); Mean Corpuscular HGB Conc 31.5 GM/DL (32-36); Mean Corpuscular Hemoglobin 28 PG (27-34); Mean Corpuscular Volume 88.9 FL (87-102); Mean Platelet Volume 10.4 FL (9.6-12.0); Monocytes # 0.5 10*3/uL (0.11-0.8); Monocytes % 5.4 % (1.7-12.7); Neutrophils # 5.5 10*3/uL (1.4-7.4); Neutrophils % 64.8 % (38.7-73.9); Platelet Count 301 T/CUMM (130-400); Red Blood Count 4.22 MC/CUMM (3.8-5.5); Red Cell Distribution Width 16.4 % (9.3-17.3); White Blood Count 8.5 T/CUMM (4-12)
[2018-09-06] MEDS: CYCLOBENZAPRINE 10 MG TABLET PO PRN ×2 (10:10→21:34)
[2018-09-06 10:26] LABS: Albumin 3.7 G/DL (3.4-5.0); Bilirubin,Total 0.5 MG/DL (0.2-1.0); Calcium 9.3 MG/DL (8.5-10.1); Osmolality,Calculated 269.1 MOS/KG (273-304); Potassium 4.3 MMOL/L (3.5-5.1); Total Protein 7.6 G/DL (6.4-8.3)
[2018-09-06] MEDS: APIXABAN 5 MG TABLET PO SCH ×2 (12:18→21:35)
[2018-09-06] MEDS: DICLOFENAC 1% GEL 100 GM TUBE TOP SCH ×2 (14:08→21:38)
[2018-09-06] MEDS ORDERED: ROSUVASTATIN 10 MG TABLET PO SCH (21:00)
[2018-09-07 05:08] LABS: Basophils # 0.1 10*3/uL (0.0-0.2); Basophils % 0.7 % (0.0-0.8); Eosinophils # 0.1 10*3/uL (0.0-0.87); Eosinophils % 1.2 % (0.00-10.9); Hematocrit 33.5 VOL% (35.7-47.0); Hemoglobin 10.4 GM/DL (12.0-16.0); Immature Granulocytes % 0.4 %; Immature Granulocytes Absolute 0.04 #; Lymphocytes # 2.5 10*3/uL (1.4-4.0); Lymphocytes % 27.4 % (21.3-54.2); Mean Corpuscular Hemoglobin 28 PG (27-34); Mean Corpuscular Volume 90.5 FL (87-102); Mean Platelet Volume 10.9 FL (9.6-12.0); Monocytes # 0.7 10*3/uL (0.11-0.8); Monocytes % 7.7 % (1.7-12.7); Neutrophils # 5.8 10*3/uL (1.4-7.4); Neutrophils % 62.6 % (38.7-73.9); Platelet Count 279 T/CUMM (130-400); Red Cell Distribution Width 16.9 % (9.3-17.3); White Blood Count 9.2 T/CUMM (4-12)
[2018-09-07 05:40] LABS: Calcium 8.5 MG/DL (8.5-10.1); Potassium 3.9 MMOL/L (3.5-5.1)
[2018-09-07] MEDS: LEVOTHYROXINE 25 MCG TABLET PO SCH (06:18)
[2018-09-07 07:34] VITALS: BP 116/50
[2018-09-07] MEDS: GABAPENTIN 400 MG CAPSULE PO SCH (08:39)
[2018-09-07] MEDS: amLODIPine 5 MG TABLET PO SCH (08:39)
[2018-09-07] MEDS: FEXOFENADINE 180 MG TABLET PO SCH (08:39)
[2018-09-07] MEDS: PANTOPRAZOLE 40 MG TABLET PO SCH (08:40)
[2018-09-07] MEDS: FAMOTIDINE 20 MG TABLET PO SCH (08:40)
[2018-09-07] MEDS: ASPIRIN EC 81 MG TABLET PO SCH (08:40)
[2018-09-07] MEDS: LISINOPRIL 20 MG TABLET PO SCH (08:40)
[2018-09-07] MEDS: CYCLOBENZAPRINE 10 MG TABLET PO PRN (08:40)
[2018-09-07] MEDS: DICLOFENAC 1% GEL 100 GM TUBE TOP SCH (08:40)
[2018-09-07] MEDS: AMIODARONE 200 MG TABLET PO SCH (08:40)
[2018-09-07] MEDS: ASCORBIC ACID 500 MG TABLET PO SCH (08:40)
[2018-09-07] MEDS: busPIRone 15 MG TABLET PO SCH (08:40)
[2018-09-07] MEDS: APIXABAN 5 MG TABLET PO SCH (08:47)
[2018-09-07] MEDS: INSULIN REGULAR 100 UNIT/ML SUBCUT SCH (09:11)
[2018-09-07] MEDS: FLUTICASONE/SALMETEROL 250-50 DISKUS 14 DOSE INH SCH (09:39)
== END 2018-09-07 11:30 ==
LOC: N.ED 15:39 → N.EDINP 15:39 → N.2E 18:26
PROVIDERS: ADMIT Internal Medicine; ATTEND Internal Medicine

== ENCOUNTER 2019-05-11 19:04 | Inpatient (IN) ==
[2019-05-11] MEDS ORDERED: SODIUM CHLORIDE 0.9% 500 ML IV STA (19:30)
[2019-05-11] MEDS ORDERED: ATROPINE 1 MG/10 ML SYRINGE IV STA (19:33)
[2019-05-11 19:38] LABS: Basophils # 0.1 10*3/uL (0.0-0.2); Basophils % 0.5 % (0.0-0.8); Eosinophils # 0.3 10*3/uL (0.0-0.87); Eosinophils % 2.1 % (0.00-10.9); Hemoglobin 8.3 GM/DL (12.0-16.0); Immature Granulocytes % 1.1 %; Immature Granulocytes Absolute 0.14 #; Lymphocytes # 2.8 10*3/uL (1.4-4.0); Lymphocytes % 21.6 % (21.3-54.2); Mean Corpuscular HGB Conc 30.7 GM/DL (32-36); Mean Corpuscular Volume 89.7 FL (87-102); Mean Platelet Volume 11.5 FL (9.6-12.0); Monocytes % 5.6 % (1.7-12.7); Neutrophils % 69.1 % (38.7-73.9); Platelet Count 256 T/CUMM (130-400); Red Blood Count 3.01 MC/CUMM (3.8-5.5); Red Cell Distribution Width 14.9 % (9.3-17.3); White Blood Count 13.2 T/CUMM (4-12)
[2019-05-11 19:54] LABS: Alanine Aminotransferase 38 U/L (13-56); Albumin 3.1 G/DL (3.4-5.0); Alkaline Phosphatase 107 U/L (45-117); Aspartate Amino Transferase 21 U/L (0-37); Blood Urea Nitrogen 26 MG/DL (7-18); Calcium 9.1 MG/DL (8.5-10.1); Estimated Glom Filtration Rate 50 ML/MIN; Glucose 182 MG/DL (74-106); Osmolality,Calculated 273.5 MOS/KG (273-304); Total Protein 6.9 G/DL (6.4-8.3); Troponin I < 0.015 NG/ML (0.00-0.045)
[2019-05-11 20:34] LABS: Apearance,Urine CLOUDY (Clear); Bacteria,Urine Many /HPF (Few); Bilirubin,Urine Negative (Negative); Blood, Urine Negative (Negative); Glucose,Urine (UA) Negative (Negative); Hyaline Casts,Urine 46 /LPF (0-3); Ketones,Urine Negative (Negative); Mucus,Urine Occasional /LPF (Occasional); Nitrite,Urine Positive (Negative); Protein,Urine 30 MG/DL; Squamous Epithelial Cell,Urine Occasional /HPF (0-10); Transitional Epi Cells,Urine Occasional /HPF (<1); Urine Color Yellow (Yellow); Urine Specific Gravity 1.015 (1.001-1.035); WBC,Urine 55 /HPF (0-6)
[2019-05-11 20:37] LABS: Barbiturates Screen,Urine Negative (Negative); Benzodiazepines Screen,Urine Negative (Negative); Cannabinoid Screen,Urine Negative (Negative); Opiate Screen,Urine Positive (Negative); Phencyclidine Screen,Urine Negative (Negative)
[2019-05-11] MEDS ORDERED: SODIUM CHLORIDE 0.9% 500 ML IV SCH (23:16)
[2019-05-11] MEDS ORDERED: ONDANSETRON 4 MG/2 ML VIAL IV PRN (23:16)
[2019-05-11] MEDS ORDERED: GLUCAGON 1 MG VIAL IM PRN (23:21)
[2019-05-11] MEDS ORDERED: DEXTROSE 50% 25 GM/50 ML VIAL IV PRN (23:21)
[2019-05-11] MEDS: CIPROFLOXACIN INJ 400 MG in PREMIX 1 EACH IV SCH (23:45)
[2019-05-12 00:22] LABS: Thyroid Stimulating Hormone 1.07 uIU/ml (0.358-3.74)
[2019-05-12] MEDS ORDERED: ACETAMINOPHEN 325 MG TABLET PO PRN (01:34)
[2019-05-12] MEDS ORDERED: FLUTICASONE 50 MCG NASAL SPRAY 16 GM BOTTLE BOTH NARES PRN (01:34)
[2019-05-12] MEDS ORDERED: GLUCOSE GEL 15 GM TUBE PO PRN (01:34)
[2019-05-12] MEDS ORDERED: MAGNESIUM SULF RIDER 4 GM in PREMIX 1 EACH IV PRN (01:44)
[2019-05-12] MEDS ORDERED: MAGNESIUM SULF RIDER 2 GM in PREMIX 1 EACH IV PRN (01:44)
[2019-05-12 04:07] LABS: Calcium 8.8 MG/DL (8.5-10.1); Osmolality,Calculated 269.5 MOS/KG (273-304)
[2019-05-12 04:22] LABS: Basophils # 0.1 10*3/uL (0.0-0.2); Basophils % 0.6 % (0.0-0.8); Eosinophils # 0.2 10*3/uL (0.0-0.87); Eosinophils % 2.2 % (0.00-10.9); Hematocrit 27.2 VOL% (35.7-47.0); Hemoglobin 8.7 GM/DL (12.0-16.0); Immature Granulocytes % 0.7 %; Immature Granulocytes Absolute 0.07 #; Lymphocytes # 1.9 10*3/uL (1.4-4.0); Lymphocytes % 18.5 % (21.3-54.2); Mean Corpuscular Volume 87.7 FL (87-102); Mean Platelet Volume 12.3 FL (9.6-12.0); Monocytes % 6.3 % (1.7-12.7); Neutrophils % 71.7 % (38.7-73.9); Platelet Count 251 T/CUMM (130-400); Red Cell Distribution Width 14.8 % (9.3-17.3); White Blood Count 10.2 T/CUMM (4-12)
[2019-05-12] MEDS ORDERED: ALBUTEROL 2.5 MG/3 ML NEB RESP TX PRN (07:00)
[2019-05-12] MEDS ORDERED: ENOXAPARIN 40 MG/0.4 ML SYRINGE SUBCUT SCH (09:00)
[2019-05-12] MEDS: INSULIN LISPRO 100 UNIT/ML SUBCUT SCH ×4 (10:08→21:11)
[2019-05-12] MEDS: ASPIRIN EC 81 MG TABLET PO SCH (13:19)
[2019-05-12] MEDS: FUROSEMIDE 40 MG/4 ML VIAL IV SCH (13:19)
[2019-05-12] MEDS: CIPROFLOXACIN INJ 400 MG in PREMIX 1 EACH IV SCH ×2 (13:19→22:50)
[2019-05-12] MEDS: PANTOPRAZOLE 40 MG TABLET PO SCH (13:20)
[2019-05-12] MEDS: APIXABAN 5 MG TABLET PO SCH ×2 (13:21→21:10)
[2019-05-12] MEDS: FEXOFENADINE 180 MG TABLET PO SCH (13:21)
[2019-05-12] MEDS: LEVOTHYROXINE 88 MCG TABLET PO SCH (13:21)
[2019-05-12] MEDS: busPIRone 15 MG TABLET PO SCH ×3 (13:21→21:09)
[2019-05-12] MEDS: POLYETHYLENE GLYCOL POWDER 17 GM PACK PO SCH ×2 (13:21→21:12)
[2019-05-12] MEDS: GABAPENTIN 100 MG CAPSULE PO SCH ×3 (13:21→21:10)
[2019-05-12] MEDS: FLUTICASONE/SALMETEROL 250-50 DISKUS 14 DOSE INH SCH ×2 (14:07→21:11)
[2019-05-12] MEDS ORDERED: ROSUVASTATIN 10 MG TABLET PO SCH (21:00)
[2019-05-12] MEDS ORDERED: PARoxetine 10 MG TABLET PO SCH (21:00)
[2019-05-13] MEDS: LEVOTHYROXINE 88 MCG TABLET PO SCH (06:05)
[2019-05-13 06:35] LABS: Basophils % 0.2 % (0.0-0.8); Eosinophils % 0.4 % (0.00-10.9); Hematocrit 31.2 VOL% (35.7-47.0); Hemoglobin 9.8 GM/DL (12.0-16.0); Immature Granulocytes Absolute 0.09 #; Lymphocytes # 1.3 10*3/uL (1.4-4.0); Lymphocytes % 14.3 % (21.3-54.2); Mean Corpuscular HGB Conc 31.4 GM/DL (32-36); Mean Corpuscular Volume 86.4 FL (87-102); Mean Platelet Volume 11.6 FL (9.6-12.0); Monocytes % 7.2 % (1.7-12.7); Neutrophils % 76.9 % (38.7-73.9); Platelet Count 283 T/CUMM (130-400); Red Blood Count 3.61 MC/CUMM (3.8-5.5); Red Cell Distribution Width 14.7 % (9.3-17.3); White Blood Count 9.3 T/CUMM (4-12)
[2019-05-13 06:55] LABS: Calcium 8.9 MG/DL (8.5-10.1); Osmolality,Calculated 277.7 MOS/KG (273-304)
[2019-05-13] MEDS: POLYETHYLENE GLYCOL POWDER 17 GM PACK PO SCH (08:09)
[2019-05-13] MEDS: busPIRone 15 MG TABLET PO SCH ×2 (08:09→16:21)
[2019-05-13] MEDS: FUROSEMIDE 40 MG/4 ML VIAL IV SCH (08:09)
[2019-05-13] MEDS: FEXOFENADINE 180 MG TABLET PO SCH (08:10)
[2019-05-13] MEDS: APIXABAN 5 MG TABLET PO SCH (08:10)
[2019-05-13] MEDS: GABAPENTIN 100 MG CAPSULE PO SCH ×2 (08:10→16:21)
[2019-05-13] MEDS: PANTOPRAZOLE 40 MG TABLET PO SCH (08:10)
[2019-05-13] MEDS: ASPIRIN EC 81 MG TABLET PO SCH (08:10)
[2019-05-13] MEDS: FLUTICASONE/SALMETEROL 250-50 DISKUS 14 DOSE INH SCH (08:11)
[2019-05-13] MEDS ORDERED: FUROSEMIDE 40 MG TABLET PO SCH (10:00)
[2019-05-13] MEDS: INSULIN LISPRO 100 UNIT/ML SUBCUT SCH ×2 (12:29→12:30)
[2019-05-13] MEDS: CIPROFLOXACIN INJ 400 MG in PREMIX 1 EACH IV SCH (14:15)
[2019-05-13 16:10] VITALS: BP 137/78
== END 2019-05-13 16:19 | disposition home or self-care (01) | DRG 308 ==
LOC: EDUNIT# → EDBD → N.ED 19:04 → N.EDINP 19:04 → N.TELEN 22:10
PROVIDERS: ADMIT Internal Medicine Geriatric Medicine; ATTEND Internal Medicine Geriatric Medicine